=== PATIENT | male | born 1965 | race Caucasian/White ===

== ENCOUNTER 2017-08-05 12:57 | Emergency (ER) | payer OTHER ==
[~2017-08-05] VITALS: Ht 177.8 cm; Wt 89.0 kg
[2017-08-05 12:58] VITALS: BP 138/88
[2017-08-05] MEDS ORDERED: ACETAMINOPHEN 325MG TABLET PO ONE (13:30)
== END 2017-08-05 15:57 | disposition home or self-care (01) ==
LOC: ER 13:05
DX: M54.5 Low back pain (principal); R07.81 Pleurodynia
CPT/HCPCS: 71101; 72100; 99284